=== PATIENT | male | born 1985 | race Caucasian/White ===

== ENCOUNTER → 2022-09-20 | Emergency (ER) | payer SELFPAY ==
[~2022-09-20] VITALS: Ht 175.3 cm; Wt 79.4 kg
[2022-09-20 07:03] VITALS: BP 143/77
== END ==
LOC: ED 02:44 → EDBD 02:45
DX: F10.921 Alcohol use, unspecified with intoxication delirium (principal); E86.0 Dehydration
CPT/HCPCS: 36415; 80053; 81001; 84443; 85025; 99284-25; G0480